=== PATIENT | male | born 1955 | race Caucasian/White ===

== ENCOUNTER 2024-07-07 11:58 | Outpatient (CLI) | payer MEDICARE, OTHER ==
[2024-07-07 13:01] LABS: Hematocrit 45.1 % (38.8-50.0); Hemoglobin 14.4 g/dL (13.5-17.5); Mean Corpuscular HGB CONC 31.9 g/dL (32.0-36.0); Mean Corpuscular Hemoglobin 28.7 pg (27.0-33.0); Mean Platelet Volume 9.6 fL (7.4-10.4); Platelet Count 181 10x3/uL (150-450); RBC Distribution Width 13.3 % (11.5-14.5); Red Blood Cell (RBC) Count 5.01 10x6/uL (4.32-5.72); White Blood Cell (WBC) Count 7.7 10x3/uL (3.5-10.5)
[2024-07-07 13:38] LABS: Anion Gap 9 mmol/L (10-20); BUN (Urea Nitrogen) 22 mg/dL (8.4-25.7); Calc. Creatinine Clearance 0 mL/min (70-130); Calcium 9.3 mg/dL (7.8-10.44); Carbon Dioxide 25 mmol/L (23-31); Chloride 110 mmol/L (98-107); Estimated GFR 70; Glucose 80 mg/dL (80-115); Potassium 4.5 mmol/L (3.5-5.1); Sodium 139 mmol/L (136-145)
== END 2024-07-07 11:59 | disposition home or self-care (01) ==
LOC: CSHLAB 11:58
PROVIDERS: ATTEND Surgery
DX: Z01.818 Encounter for other preprocedural examination (principal); K40.91 Unilateral inguinal hernia, without obstruction or gangrene, recurrent; R94.31 Abnormal electrocardiogram [ECG] [EKG]
CPT/HCPCS: 80048; 85027; 93005; 93010

== ENCOUNTER 2024-07-15 05:50 | Day surgery (SDC) | payer MEDICARE, OTHER ==
[2024-07-07 12:25] VITALS: BMI 25.7
[2024-07-15] MEDS ORDERED: Bupivacaine HCl 0.5%/Epinephrine 1:200,000/PF 30 ml Vial ONE (06:51)
[2024-07-15] MEDS ORDERED: CEFAZOLIN 2 GM VIAL ONE (06:51)
[2024-07-15] MEDS ORDERED: PROPOFOL 20 ML ONE (07:01)
[2024-07-15] MEDS ORDERED: Lidocaine 2% PF 5 ML VIAL ONE (07:01)
[2024-07-15] MEDS ORDERED: Ondansetron PF 4 MG/2 ML Vial ONE (07:07)
[2024-07-15] MEDS ORDERED: Dexamethasone 4 mg/ml Vial ONE (07:07)
[2024-07-15] MEDS ORDERED: fentaNYL 50 mcg/mL 1 mL Vial ONE ×3 (07:08→08:39)
[2024-07-15] MEDS ORDERED: Clindamycin/D5W 600 mg/50 ml Premix Bag ONE (07:14)
[2024-07-15] MEDS ORDERED: ePHEDrine Sulfate 50 MG/10 ML VIAL ONE (07:31)
[2024-07-15] MEDS ORDERED: HYDROcodone/Acetaminophen 5/325 mg Tablet ONE (09:01)
[2024-07-15] MEDS ORDERED: SUGAMMADEX SODIUM 200 MG/2 ML VIAL ONE (09:10)
== END 2024-07-15 09:50 | disposition home or self-care (01) ==
LOC: CSHSDC 05:50
PROVIDERS: ATTEND Surgery
PROC: 0YU54JZ Supplement Right Inguinal Region with Synthetic Substitute, Percutaneous Endoscopic Approach (ICD-10-PCS; principal; 2024-07-15)
DX: K40.91 Unilateral inguinal hernia, without obstruction or gangrene, recurrent (principal); Z88.6 Allergy status to analgesic agent; N40.0 Benign prostatic hyperplasia without lower urinary tract symptoms; K21.9 Gastro-esophageal reflux disease without esophagitis; Z88.0 Allergy status to penicillin; Z88.2 Allergy status to sulfonamides; Z79.899 Other long term (current) drug therapy; F17.290 Nicotine dependence, other tobacco product, uncomplicated; Z90.49 Acquired absence of other specified parts of digestive tract; Z98.890 Other specified postprocedural states
CPT/HCPCS: 49651; C1781; J1100; J2405; J2704; J3010; J3490; S2900